=== PATIENT | female | born 1960 | race Caucasian/White ===

== ENCOUNTER → 2022-04-24 | Outpatient (CLI) | payer OTHER | LOC: COL.RAD 10:47 | DX: E04.9 Nontoxic goiter, unspecified (principal) ==

== ENCOUNTER → 2022-05-22 | Outpatient (CLI) | payer OTHER | LOC: MHCPAIN 10:55 | DX: M54.2 Cervicalgia (principal); M25.511 Pain in right shoulder; M79.2 Neuralgia and neuritis, unspecified; I10 Essential (primary) hypertension | CPT/HCPCS: G0463 ==

== ENCOUNTER → 2022-12-09 | Outpatient (CLI) | payer OTHER | LOC: MHCPAIN 10:15 | DX: M47.892 Other spondylosis, cervical region (principal); M54.12 Radiculopathy, cervical region; M25.511 Pain in right shoulder | CPT/HCPCS: G0463 ==